=== PATIENT | female | born 2000 ===

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

== ENCOUNTER 2022-07-10 20:53 | Outpatient (REF) | payer MEDICAID, SELFPAY | END 2022-07-10 20:54 | disposition home or self-care (01) | LOC: NCHCN 20:53 | PROVIDERS: PCP Nurse Practitioner Family; Visit Provider Registered Nurse | DX: K21.9 Gastro-esophageal reflux disease without esophagitis (principal) | CPT/HCPCS: 83630 ==